=== PATIENT | male | born 1955 | race Caucasian/White ===

== ENCOUNTER → 2018-04-19 | Outpatient (CLI) | payer OTHER ==
[2018-04-19 19:00] LABS: Rheumatoid Factor 8 IU/mL (0-15)
[2018-04-19 19:19] LABS: DNA Double-Stranded NEGATIVE (NEGATIVE)
[2018-04-20 12:04] LABS: ANA Pattern Speckled
== END | disposition home or self-care (01) ==
LOC: LABWHC1 15:24
PROVIDERS: ATTEND Psychiatry & Neurology Neurology
DX: I66.23 Occlusion and stenosis of bilateral posterior cerebral arteries (principal)
CPT/HCPCS: 36415; 82565; 84520; 86038; 86039; 86225; 86431

== ENCOUNTER → 2018-04-21 | Outpatient (CLI) | payer OTHER ==
--- NOTE | 2018-04-21 15:13 | MR ---
EXAMINATION TYPE: MR brain wo/w con DATE OF EXAM: 04/21/2018 2:24 PM COMPARISON: NONE HISTORY: Stroke in watershed area CONTRAST: Patient received 13 mL intravenous Gadavist gadolinium contrast. Multiplanar and multispin-echo imaging of the brain was performed . Pre and post contrast enhanced i mages are obtained. The ventricles, basal cisterns and sulci overlying the cerebral convexities are mildly enlarged. There is evidence of mild periventricular white matter ischemic demyelination. Remote deep white matter insults are also noted. No acute edema is seen on diffusion weighted imaging. There is no evidence for midline shift or mass effect. Acute intracranial hemorrhage or extra-axial collection is not evident. No enhancing lesions are seen. Mild chronic paranasal sinusitis. Mild chronic left-sided mastoiditis. IMPRESSION: Age-related atrophic and chronic small vessel ischemic change. No acute intracranial process at this time. No enhancing lesions are seen.
== END | disposition home or self-care (01) ==
LOC: RADMRIMAIN 13:33
PROVIDERS: ATTEND Psychiatry & Neurology Neurology
DX: G31.1 Senile degeneration of brain, not elsewhere classified (principal); I67.82 Cerebral ischemia
CPT/HCPCS: 70553; A9581

== ENCOUNTER 2018-05-17 23:32 | Emergency (ER) | payer OTHER ==
[2018-05-17 23:46] VITALS: BP 136/73; PULSE 95; RESP 18; TEMP 97.8
--- NOTE | 2018-05-17 23:54 | ED ---
General Adult HPI <Carmen Apple - Last Filed: 05/18/18 03:44> - General Source: patient, family Mode of arrival: ambulatory Limitations: no limitations <NewsomeAnn dahlallie Luna - Last Filed: 05/18/18 04:51> - General Chief complaint: Extremity Problem,Nontraumatic Stated complaint: NUMBNESS Time Seen by Provider: 05/17/18 23:54 - History of Present Illness Initial comments: 63-year-old male patient presents to the emergency department today for complaints of bilateral lower extremity pain and weakness. Patient states that he has been having weakness, numbness, and pain to his lower extremities and his right arm for the last 3 months. Patient states that he has been evaluated by multiple physicians and has had multiple MRIs. Patient states that they found an abnormality on his MRI of his cervical spine and he is supposed to follow-up at [facility] for possible surgical procedure. Patient states that he has been waiting for [facility] to call him back for an appointment but they have not done so. Patient states that his symptoms have not changed however his pain seems to be a little worse tonight. He denies any loss of bowel or bladder control. Denies any saddle anesthesia. Patient presents requesting something to manage his pain and for us to expedite his appointment with [facility]. Patient denies any headache, blurred vision, or double vision. He denies any new numbness or tingling. Patient denies any recent rash, fever, chills, shortness breath, chest pain, abdominal pain, nausea, vomiting, diarrhea, constipation, back pain, dizziness, hematuria , dysuria, urinary urgency, urinary frequency, headache, visual changes, or any other complaints. (Carmen Apple) - Related Data Home Medications Medication Instructions Recorded Confirmed FLUoxetine HCL [PROzac] 20 mg PO DAILY 11/04/15 11/04/15 Lisinopril 30 mg PO DAILY 11/04/15 11/04/15 Previous Rx's Medication Instructions Recorded HYDROcodone/APAP 5-325MG [[place] 5] 1 each PO Q4HR PRN #20 tab 11/04/15 Naproxen [Naprosyn] 500 mg PO Q12HR #24 tab 11/04/15 Hydrocodone/Acetaminophen [[place] 1 tab PO Q6HR PRN #12 tab 05/18/18 5-325] Allergies Allergy/AdvReac Type Severity Reaction Status Date / Time No Known Allergies Allergy Verified 05/17/18 23:46 Review of Systems ROS Other: All systems not noted in ROS Statement are negative. <Carmen Apple M - Last Filed: 05/18/18 03:44> ROS Other: All systems not noted in ROS Statement are negative. <Anne Newsome P - Last Filed: 05/18/18 04:51> ROS Statement: Those systems with pertinent positive or pertinent negative responses have been documented in the HPI. Past Medical History Past Medical History: Hypertension History of Any Multi-Drug Resistant Organisms: MRSA Date of last positivie culture/infection: 2005 MDRO Source:: ABD Past Surgical History: No Surgical Hx Reported Past Psychological History: Anxiety Smoking Status: Never smoker Past Alcohol Use History: None Reported Past Drug Use History: None Reported <Anne Newsome P - Last Filed: 05/18/18 04:51> General Exam General appearance: alert, in no apparent distress, other (This is a well- developed, obese adult male patient in no acute distress. Vital signs upon presentation are temperature 97.8F, pulse 95, respirations 18, blood pressure 136/73, pulse ox 99% on room air.) Eye exam: Present: normal appearance, PERRL, EOMI. Absent: scleral icterus, conjunctival injection, periorbital swelling ENT exam: Present: normal exam, normal oropharynx, mucous membranes moist Neck exam: Present: normal inspection. Absent: tenderness, meningismus, lymphadenopathy Respiratory exam: Present: normal lung sounds bilaterally. Absent: respiratory distress, wheezes, rales, rhonchi, stridor Cardiovascular Exam: Present: regular rate, normal rhythm, normal heart sounds. Absent: systolic murmur, diastolic murmur, rubs, gallop, clicks Extremities exam: Present: normal inspection, full ROM, normal capillary refill , other (Skin to all extremities is pink, warm, and dry. Cap refills less than 3 seconds. Radial pulses 2+ and equal bilaterally. Pedal pulses 2+ and equal bilaterally.). Absent: tenderness, pedal edema, joint swelling, calf tenderness Neurological exam: Present: alert, oriented X3, CN II-XII intact, other ( Strength in all 4 extremities is 5/5.) Psychiatric exam: Present: normal affect, normal mood Skin exam: Present: warm, dry, intact, normal color. Absent: rash <Carmen Apple - Last Filed: 05/18/18 03:44> Limitations: no limitations <Anne Newsome P - Last Filed: 05/18/18 04:51> Vital Signs 05/17/18 23:39 Temperature 97.8 F Pulse Rate 95 Respiratory 18 Rate Blood Pressure 136/73 O2 Sat by Pulse 99 Oximetry Medical Decision Making <Carmen Apple - Last Filed: 05/18/18 03:44> <Anne Newsome - Last Filed: 05/18/18 04:51> - Medical Decision Making 63-year-old male patient presents to the emergency department today requesting pain management and for us to expedite a visit with [facility]. Physical examination is relatively unremarkable. Patient does have a shuffling gait. Strength in the lower extremities and upper extremities is equal. Patient denied any loss of bowel or bladder control. He denies any saddle anesthesia. Patient has been experiencing bilateral lower extremity weakness and pain as well as right upper extremity weakness and pain for the last 3 months. Patient has had MRI of his brain as well as cervical spine. I did review these tests and there does appear to be degenerative changes to the cervical spine with some disc bulging and pinching on the thecal sac. I did discuss these results with the patient, he states he was aware of this and results were given to him by his neurologist Dr. Bose. Patient states that he has been in contact with [facility] but they have not yet called him with an appointment. Patient states that he is "sick of waiting" for results and treatment and he would like us to speed the process along for him. I did discuss that with no acute changes to his condition or any acute findings that I would be unable to transfer him or arrange this appointment for him. I did give him an injection for pain. I did give him a prescription for pain medication. He is instructed to follow-up with his neurologist as well as his primary care physician to discuss his wishes for follow-up. Return parameters were discussed in detail. He verbalizes understanding and agrees with this plan. (Carmen Apple) I was available for consultation in the emergency department. The history and physical exam were done by the midlevel provider. I was consulted for this patient's care. I reviewed the case with the midlevel provider and based on their presentation of the patient, I agree with the assessment, medical decision making and plan of care as documented. (Anne Newsome) Disposition Is patient prescribed a controlled substance at d/c from ED?: Yes When asked, does pt state using other controlled substances?: No If prescribed controlled substance>3 days was MAPS reviewed?: Prescribed <3 Days If opioid is for acute pain is fill amount 7 days or less?: Yes If Rx opioid, was Start Talking consent form obtained?: Yes Time of Disposition: 00:23 <Carmen Apple - Last Filed: 05/18/18 03:44> <Anne Newsome - Last Filed: 05/18/18 04:51> Clinical Impression: Leg pain, Weakness Disposition: HOME SELF-CARE Condition: Good Instructions: Weakness (ED), Leg Pain (ED) Additional Instructions: Take medication as directed and as needed only. Follow-up with your neurologist and primary care physician to discuss further management and possible referral to [place]. Return here immediately for any new, worsening, or concerning symptoms. Prescriptions: Hydrocodone/Acetaminophen [[place] 5-325] 1 tab PO Q6HR PRN #12 tab PRN Reason: Pain Referrals: Mayra Mann DO [Primary Care Provider] - 1-2 days
[2018-05-18] MEDS ORDERED: MORPHINE SULFATE 4 MG/ML SYRINGE IM STA (00:22)
== END 2018-05-18 00:33 | disposition home or self-care (01) ==
LOC: EC 23:32
DX: M79.604 Pain in right leg (principal); M79.605 Pain in left leg; R53.1 Weakness; R20.0 Anesthesia of skin; I10 Essential (primary) hypertension; F41.9 Anxiety disorder, unspecified; Z86.14 Personal history of Methicillin resistant Staphylococcus aureus infection; Z79.899 Other long term (current) drug therapy
CPT/HCPCS: 99283; 96372; J2270

== ENCOUNTER 2018-06-04 22:31 | Emergency (ER) | payer OTHER ==
[2018-06-04 23:32] LABS: Basophils # (A) 0.1 k/uL (0-0.2); Basophils % (A) 1 %; Eosinophils # (A) 0.2 k/uL (0-0.7); Eosinophils % (A) 2 %; HGB 14.2 gm/dL (13.0-17.5); Lymphocytes # (A) 1.2 k/uL (1.0-4.8); Lymphocytes % (A) 16 %; MCH 29.6 pg (25.0-35.0); MCHC 33.7 g/dL (31.0-37.0); MCV 87.9 fL (80.0-100.0); Monocytes # (A) 0.5 k/uL (0-1.0); Monocytes % (A) 6 %; Neutrophils # (A) 5.4 k/uL (1.3-7.7); Neutrophils % (A) 72 %; Platelet Count 225 k/uL (150-450); RBC 4.78 m/uL (4.30-5.90); RDW 12.6 % (11.5-15.5); WBC 7.4 k/uL (3.8-10.6)
[2018-06-04 23:41] LABS: ALT 54 U/L (21-72); AST 34 U/L (17-59); Albumin 3.8 g/dL (3.5-5.0); Alkaline Phosphatase 45 U/L (38-126); Anion Gap 12 mmol/L; Blood Urea Nitrogen 19 mg/dL (9-20); Calcium 9.2 mg/dL (8.4-10.2); Carbon Dioxide 21 mmol/L (22-30); Chloride 105 mmol/L (98-107); Glucose 130 mg/dL (74-99); Potassium 4.3 mmol/L (3.5-5.1); Sodium 138 mmol/L (137-145); Total Bilirubin 0.4 mg/dL (0.2-1.3); Total Protein 6.8 g/dL (6.3-8.2)
[2018-06-04 23:42] LABS: Partial Thromboplastin Time 26.2 sec (22.0-30.0); Prothrombin Time 10.2 sec (9.0-12.0)
--- NOTE | 2018-06-04 23:48 | XR ---
EXAMINATION TYPE: XR chest 2V DATE OF EXAM: 06/04/2018 COMPARISON: 07/21/2013 HISTORY: Difficulty breathing TECHNIQUE: Frontal and lateral views of the chest are obtained. FINDINGS: Heart and mediastinum are normal. Lungs are clear of infiltrate. Diaphragm is normal. Bony thorax is normal. IMPRESSION: No cardiopulmonary disease. Stable granuloma in the anterior right middle lobe.
[2018-06-04 23:49] LABS: Creatine Kinase 139 U/L (55-170)
[2018-06-05 00:01] LABS: Creatine Kinase MB 1.9 ng/mL (0.0-2.4); Troponin I <0.012 ng/mL (0.000-0.034)
[2018-06-05 00:26] VITALS: BP 129/72; PULSE 88; RESP 18; TEMP 98.1
--- NOTE | 2018-06-05 00:56 | ED ---
General Adult HPI - General Chief complaint: Shortness of Breath Stated complaint: ALS ISSUE Time Seen by Provider: 06/04/18 22:57 Source: patient Mode of arrival: wheelchair Limitations: no limitations - History of Present Illness Initial comments: Garth Shaikh is a 63-year-old male who presents the emergency department today with multiple complaints but primarily requesting that his previous records be reviewed as he was told in the past that he had disc bulging at the C4-C5 area a couple months ago which could be contributing to his generalized weakness, leg pain. However patient was recently admitted at [facility] and diagnosed with ALS. Patient has been undergoing a thorough workup due to progressively worsening weakness in his legs and now his arms which has been worsening over the past couple of months. Patient is been evaluated at multiple hospitals and had outpatient MRI is performed at this hospital, an MRI of the brain suggested he had a stroke, and addition he had a MRI of the cervical spine which revealed some disc bulging at the C4-C5 area. Since the time of that MRI the patient was admitted at [facility], he reports that he underwent thorough evaluation including lumbar puncture, repeat MRIs and was advised that he has ALS. The patient was discharged home and has neurology follow-up scheduled for the first week of June. Patient reports that throughout all of this he's had persistent weakness of his upper or lower extremities, he is now using a wheelchair though he is able to stand and transfer from bed to wheelchair stone. Patient reports that today he is feeling generalized weakness, reports a transient episode of having difficulty breathing reports that resolved prior to arrival. Patient denies any headaches, vision changes, speech difficulty, trouble speaking or swallowing, any chest pain, palpitations, he reports earlier he felt that he couldn't take a look full breath but that that has resolved. Denies any abdominal pain or change in bowel or bladder habits. - Related Data Home Medications Medication Instructions Recorded Confirmed FLUoxetine HCL [PROzac] 20 mg PO DAILY 11/04/15 06/04/18 HYDROcodone/APAP 7.5-325MG [[place] 1 tab PO TID 06/04/18 06/04/18 7.5-325] Lisinopril 40 mg PO DAILY 06/04/18 06/04/18 Atorvastatin [Lipitor] 40 mg PO DAILY 06/05/18 06/05/18 Gabapentin [Neurontin] 300 mg PO TID 06/05/18 06/05/18 Allergies Allergy/AdvReac Type Severity Reaction Status Date / Time No Known Allergies Allergy Verified 06/04/18 23:01 Review of Systems ROS Statement: Those systems with pertinent positive or pertinent negative responses have been documented in the HPI. ROS Other: All systems not noted in ROS Statement are negative. Past Medical History Past Medical History: Hypertension Additional Past Medical History / Comment(s): ALS History of Any Multi-Drug Resistant Organisms: MRSA Date of last positivie culture/infection: 2005 MDRO Source:: ABD Past Surgical History: No Surgical Hx Reported Past Psychological History: Anxiety Smoking Status: Never smoker Past Alcohol Use History: None Reported Past Drug Use History: None Reported General Exam - General Exam Comments Initial Comments: Physical Exam GENERAL: Patient is well-developed and well-nourished. Patient is nontoxic and well-hydrated and is in no distress. HENT: Normocephalic, Atraumatic. EYES: PERRL, EOMI PULMONARY: Unlabored respirations. No audible rales rhonchi or wheezing was noted. CARDIOVASCULAR: There is a regular rate and rhythm without any murmurs gallops or rubs. ABDOMEN: Soft and nontender with normal bowel sounds. SKIN: Skin is clear with no lesions or rashes and otherwise unremarkable. : Deferred NEUROLOGIC: Bilateral upper and lower extremity weakness MUSCULOSKELETAL: Bilateral upper and lower extremity weakness PSYCHIATRIC: Anxious Limitations: no limitations Limitations: no limitations Course Vital Signs 06/04/18 06/05/18 22:43 00:25 Temperature 97.8 F 98.1 F Pulse Rate 77 88 Respiratory 20 18 Rate Blood Pressure 122/80 129/72 O2 Sat by Pulse 98 97 Oximetry EKG Findings - EKG Comments: EKG Findings:: EKG obtained at 11:10 PM, rate 71, rhythm is sinus, there is a left axis deviation. Normal intervals, W[place] 166, QRS 100, QTC is 4:30. There is no acute ST elevations or depressions no evidence of acute ischemia or infarction. Medical Decision Making - Medical Decision Making Patient is a 63-year-old male with extensive history who presents with vague complaints. Patient reported to triage that he had experienced some shortness of breath earlier in the day. Upon my initial evaluation patient reports that symptoms he experienced earlier in the day have resolved but that he returned to this ER because this is where his MRI was performed and he wanted to discuss the results. Patient detailed to me his long and complicated course of multiple hospitalizations, multiple tests including CTs, MRIs, lumbar punctures, EMGs in the like. Patient does express significant irritation with having gone through so many tests and still feeling that he has only questions. Patient states that he was told by neurology at [facility] that he has ALS, he is uncertain of the significance of this, he is uncertain of the treatment plan. Patient states that he is scheduled to see a neurologist again in the first week of June. Patient is concerned that this may be a missed diagnosis and wanted his MRIs reevaluated. On exam the patient is well-appearing though he does seem to have weakness in his upper and lower extremities, he is able to transition from wheelchair to bed at bedside wheelchair. He is moving all surety's. He is awake alert and oriented. He is in no respiratory distress. Labs and imaging were ordered EKG unremarkable labs are unremarkable Reviewed the patient's cervical spine MRI and results with him. Patient requested a no if the disc bulging at C4 5 could result in all of his weakness and problems. I advised him this is unlikely that he needs to direct these questions to a neurologist or neurosurgeon. Patient appropriately saddened by this news. Patient requesting to be discharged home at this time as he is essentially his new baseline physical status. Questions pertaining care were answered to the very best of my ability and the patient was discharged home. - Lab Data Result diagrams: 06/04/18 23:18 06/04/18 23:18 Lab Results 06/04/18 06/04/18 06/04/18 Range/Units 23:18 23:18 23:18 WBC 7.4 (3.8-10.6) k/uL RBC 4.78 (4.30-5.90) m/uL Hgb 14.2 (13.0-17.5) gm/dL Hct 42.0 (39.0-53.0) % MCV 87.9 (80.0-100.0) fL MCH 29.6 (25.0-35.0) pg MCHC 33.7 (31.0-37.0) g/dL RDW 12.6 (11.5-15.5) % Plt Count 225 (150-450) k/uL Neutrophils % 72 % Lymphocytes % 16 % Monocytes % 6 % Eosinophils % 2 % Basophils % 1 % Neutrophils # 5.4 (1.3-7.7) k/uL Lymphocytes # 1.2 (1.0-4.8) k/uL Monocytes # 0.5 (0-1.0) k/uL Eosinophils # 0.2 (0-0.7) k/uL Basophils # 0.1 (0-0.2) k/uL PT (9.0-12.0) sec INR (<1.2) APTT (22.0-30.0) sec Sodium 138 (137-145) mmol/L Potassium 4.3 (3.5-5.1) mmol/L Chloride 105 (98-107) mmol/L Carbon Dioxide 21 L (22-30) mmol/L Anion Gap 12 mmol/L BUN 19 (9-20) mg/dL Creatinine 1.01 (0.66-1.25) mg/dL Est GFR (CKD-EPI)AfAm >90 (>60 ml/min/1.73 sqM) Est GFR (CKD-EPI)NonAf 78 (>60 ml/min/1.73 sqM) Glucose 130 H (74-99) mg/dL Calcium 9.2 (8.4-10.2) mg/dL Total Bilirubin 0.4 (0.2-1.3) mg/dL AST 34 (17-59) U/L ALT 54 (21-72) U/L Alkaline Phosphatase 45 (38-126) U/L Total Creatine Kinase 139 (55-170) U/L CK-MB (CK-2) 1.9 (0.0-2.4) ng/mL CK-MB (CK-2) Rel Index 1.4 Troponin I <0.012 (0.000-0.034) ng/mL Total Protein 6.8 (6.3-8.2) g/dL Albumin 3.8 (3.5-5.0) g/dL 06/04/18 Range/Units 23:18 WBC (3.8-10.6) k/uL RBC (4.30-5.90) m/uL Hgb (13.0-17.5) gm/dL Hct (39.0-53.0) % MCV (80.0-100.0) fL MCH (25.0-35.0) pg MCHC (31.0-37.0) g/dL RDW (11.5-15.5) % Plt Count (150-450) k/uL Neutrophils % % Lymphocytes % % Monocytes % % Eosinophils % % Basophils % % Neutrophils # (1.3-7.7) k/uL Lymphocytes # (1.0-4.8) k/uL Monocytes # (0-1.0) k/uL Eosinophils # (0-0.7) k/uL Basophils # (0-0.2) k/uL PT 10.2 (9.0-12.0) sec INR 1.0 (<1.2) APTT 26.2 (22.0-30.0) sec Sodium (137-145) mmol/L Potassium (3.5-5.1) mmol/L Chloride (98-107) mmol/L Carbon Dioxide (22-30) mmol/L Anion Gap mmol/L BUN (9-20) mg/dL Creatinine (0.66-1.25) mg/dL Est GFR (CKD-EPI)AfAm (>60 ml/min/1.73 sqM) Est GFR (CKD-EPI)NonAf (>60 ml/min/1.73 sqM) Glucose (74-99) mg/dL Calcium (8.4-10.2) mg/dL Total Bilirubin (0.2-1.3) mg/dL AST (17-59) U/L ALT (21-72) U/L Alkaline Phosphatase (38-126) U/L Total Creatine Kinase (55-170) U/L CK-MB (CK-2) (0.0-2.4) ng/mL CK-MB (CK-2) Rel Index Troponin I (0.000-0.034) ng/mL Total Protein (6.3-8.2) g/dL Albumin (3.5-5.0) g/dL Disposition Clinical Impression: Leg pain, Weakness Disposition: HOME SELF-CARE Instructions: Amyotrophic Lateral Sclerosis (DC) Is patient prescribed a controlled substance at d/c from ED?: No Referrals: Mayra Mann DO [Primary Care Provider] - 1-2 days
== END 2018-06-05 01:00 | disposition home or self-care (01) ==
LOC: EC 22:31
DX: M79.606 Pain in leg, unspecified (principal); R29.898 Other symptoms and signs involving the musculoskeletal system; G12.21 Amyotrophic lateral sclerosis; I10 Essential (primary) hypertension; F41.9 Anxiety disorder, unspecified; Z79.891 Long term (current) use of opiate analgesic; Z79.899 Other long term (current) drug therapy; Z86.14 Personal history of Methicillin resistant Staphylococcus aureus infection; Z99.3 Dependence on wheelchair
CPT/HCPCS: 36415; 71046; 80053; 82550; 82553; 84484; 85025; 85610; 85730; 93005; 99285